=== PATIENT | male | born 1965 | race Caucasian/White ===

== ENCOUNTER 2017-09-09 08:28 | Emergency (ER) | payer OTHER | END 2017-09-09 11:39 | disposition home or self-care (01) | LOC: FTE 08:28 | DX: S82.435A Nondisplaced oblique fracture of shaft of left fibula, initial encounter for closed fracture (principal); S82.252A Displaced comminuted fracture of shaft of left tibia, initial encounter for closed fracture; W18.39XA Other fall on same level, initial encounter; Y92.9 Unspecified place or not applicable; Z87.891 Personal history of nicotine dependence | CPT/HCPCS: 29515; 73610; 73630-LT; 99283-25 ==